=== PATIENT | female | born 1965 | race American Indian/Alaskan Native ===

== ENCOUNTER 2018-08-06 05:55 | Emergency (ER) | payer BC ==
[2018-08-06] MEDS ORDERED: ZOFRAN ODT ONE (06:02)
[2018-08-06] MEDS ORDERED: ZOFRAN ODT PO ONE (06:06)
[2018-08-06 07:07] LABS: Bilirubin,Urine NEG (Negative); Blood,Urine LG (Negative); Color,Urine Yellow (Yellow); Mucus,Urine FEW /HPF; Urobilinogen,Urine < 2.0 mg/dL (<2.0)
[2018-08-06 07:27] LABS: Basophils # (Auto) 0.1 K/mm3 (0.0-0.1); Basophils % (Auto) 1.1 % (0.0-1.8); Eosinophils % (Auto) 0.2 % (0.0-4.3); Hematocrit 39.1 % (30.3-42.9); Hemoglobin 12.7 gm/dl (10.1-14.3); Lymphocytes # (Auto) 2.8 K/mm3 (1.2-5.4); Lymphocytes % (Auto) 26.4 % (13.4-35.0); Mean Corpuscular HGB Conc 33 % (30-34); Mean Corpuscular Volume 79 fl (79-97); Monocytes # (Auto) 0.4 K/mm3 (0.0-0.8); Monocytes % (Auto) 3.8 % (0.0-7.3); Platelet Count 410 K/mm3 (140-440); Red Blood Count 4.94 M/mm3 (3.65-5.03)
[2018-08-06 07:52] LABS: Alanine Aminotransferase 29 units/L (7-56); Albumin 4.2 g/dL (3.9-5); BUN/Creatinine Ratio 18; Blood Urea Nitrogen 16 mg/dL (7-17); Calcium 9.3 mg/dL (8.4-10.2); Hemolysis Index 3
[2018-08-06] MEDS ORDERED: ZOFRAN IV ONE (08:24)
[2018-08-06] MEDS ORDERED: TORADOL IV ONE (08:24)
[2018-08-06] MEDS ORDERED: PEPCID IV ONE (08:24)
[2018-08-06] MEDS ORDERED: MORPHINE IV ONE (08:24)
[2018-08-06] MEDS ORDERED: NACL 0.9% 1000 ML 1,000 ML IV ONE (08:24)
--- NOTE | 2018-08-06 09:46 | Cat Scan Report ---
CT ABDOMEN PELVIS WITHOUT CONTRAST: HISTORY: Right flank pain with hematuria. COMPARISON: none. TECHNIQUE: Helical CT in 1.25mm intervals without IV contrast. Sagittal and coronal reconstructions. FINDINGS: Lung bases: Within normal limits. Liver: There is mild diffuse fatty infiltration throughout the liver. Borderline hepatomegaly. No obvious focal mass or surface nodularity. Biliary system: Normal. Pancreas: Normal. Spleen: Normal. Kidneys/ureters/bladder: There is mild right hydronephrosis. A 5.1 x 4.6 x 7.8 mm stone is identified in the distal right ureter on image 148, series 3. There are 3 stones in the right kidney measuring 4.1, 4.3 and 9.0 mm. No left nephrolithiasis is identified. No obvious renal cystic disease or renal mass. The bladder is partially empty but unremarkable. Adrenal glands: Normal. Aorta: Within normal limits. Intestines: No oral contrast was administered. No evidence for outlet obstruction or focal inflammation. Appendix: Normal. Pelvic viscera: The uterus appears mildly enlarged. Mild uterine fibroid disease is suspected. The adnexa are unremarkable. Ascites: None. Adenopathy: None. Musculoskeletal: Mild thoracolumbar spondylosis. Small uncomplicated umbilical hernia containing fat. IMPRESSION: Distal right ureteral stone with mild right hydronephrosis. Right nephrolithiasis. See above. Mild diffuse fatty infiltration throughout the liver. Mild uterine fibroid disease.
--- NOTE | 2018-08-06 10:20 | Emergency Department Report ---
ED Abdominal Pain HPI - General Chief Complaint: Abdominal Pain Stated Complaint: SIDE PAIN Time Seen by Provider: 08/06/18 08:20 Source: patient Mode of arrival: Ambulatory Limitations: No Limitations - History of Present Illness Initial Comments: Patient is a 52-year-old female who has had pain in the right flank for the last 2 days. Patient states that it started gradual and was intermittent but has worsened over the last 24 hours. Patient states that the pain is a 10 out of 10 in severity and is sharp stabbing pain. Patient states that palpation does not make it worse. Patient states is a deeper sensation. There is associated nausea vomiting and 1 episode of loose stools. Patient denies any fever cough cold congestion or dysuria at this time. Severity scale (0 -10): 6 - Related Data Previous Rx's Medication Instructions Recorded Last Taken Type HYDROcodone/ACETAMINOPHEN 1 each PO Q6HR PRN #12 tablet 08/06/18 Unknown Rx [Hydrocodone-Acetamin 5-325 mg] Ibuprofen [Ibu] 800 mg PO Q8H PRN #20 tablet 08/06/18 Unknown Rx Nitrofurantoin Monohyd/M-Cryst 100 mg PO BID #14 capsule 08/06/18 Unknown Rx [Macrobid 100 mg Capsule] Ondansetron [Zofran Odt] 4 mg PO Q8HR #10 tab.rapdis 08/06/18 Unknown Rx Tamsulosin [Flomax] 0.4 mg PO QDAY #7 cap 08/06/18 Unknown Rx Allergies Allergy/AdvReac Type Severity Reaction Status Date / Time No Known Allergies Allergy Verified 08/06/18 06:01 ED Review of Systems ROS: Stated complaint: SIDE PAIN Other details as noted in HPI Comment: All other systems reviewed and negative ED Past Medical Hx - Past Medical History Previous Medical History?: Yes Hx Hypertension: Yes - Surgical History Past Surgical History?: Yes Additional Surgical History: ovarian cyst - Social History Smoking Status: Never Smoker - Medications Home Medications: Home Medications Medication Instructions Recorded Confirmed Last Taken Type HYDROcodone/ACETAMINOPHEN 1 each PO Q6HR PRN #12 tablet 08/06/18 Unknown Rx [Hydrocodone-Acetamin 5-325 mg] Ibuprofen [Ibu] 800 mg PO Q8H PRN #20 tablet 08/06/18 Unknown Rx Nitrofurantoin Monohyd/M-Cryst 100 mg PO BID #14 capsule 08/06/18 Unknown Rx [Macrobid 100 mg Capsule] Ondansetron [Zofran Odt] 4 mg PO Q8HR #10 tab.rapdis 08/06/18 Unknown Rx Tamsulosin [Flomax] 0.4 mg PO QDAY #7 cap 08/06/18 Unknown Rx ED Physical Exam - General Limitations: No Limitations General appearance: alert, in distress - Head Head exam: Present: atraumatic, normocephalic - Eye Eye exam: Present: normal appearance, PERRL, EOMI - ENT ENT exam: Present: mucous membranes moist - Neck Neck exam: Present: normal inspection - Respiratory Respiratory exam: Present: normal lung sounds bilaterally. Absent: respiratory distress, wheezes, rales, rhonchi, stridor - Cardiovascular Cardiovascular Exam: Present: regular rate, normal rhythm, normal heart sounds. Absent: systolic murmur, diastolic murmur, rubs, gallop - GI/Abdominal GI/Abdominal exam: Present: soft, tenderness, normal bowel sounds. Absent: distended, guarding, rebound - Extremities Exam Extremities exam: Present: normal inspection - Back Exam Back exam: Present: normal inspection - Neurological Exam Neurological exam: Present: alert, oriented X3 - Psychiatric Psychiatric exam: Present: normal affect, normal mood - Skin Skin exam: Present: warm, dry, intact, normal color. Absent: rash ED Course Vital Signs 08/06/18 08/06/18 05:58 10:24 Temperature 98.7 F Pulse Rate 121 H 100 H Respiratory 18 16 Rate Blood Pressure 191/96 Blood Pressure 161/95 [Left] O2 Sat by Pulse 99 95 Oximetry ED Medical Decision Making - Lab Data Result diagrams: 08/06/18 07:01 08/06/18 07:01 Lab Results 08/06/18 08/06/18 08/06/18 Range/Units 06:41 07:01 07:01 WBC 10.4 (4.5-11.0) K/mm3 RBC 4.94 (3.65-5.03) M/mm3 Hgb 12.7 (10.1-14.3) gm/dl Hct 39.1 (30.3-42.9) % MCV 79 (79-97) fl MCH 26 L (28-32) pg MCHC 33 (30-34) % RDW 17.0 H (13.2-15.2) % Plt Count 410 (140-440) K/mm3 Lymph % (Auto) 26.4 (13.4-35.0) % [place] % (Auto) 3.8 (0.0-7.3) % Eos % (Auto) 0.2 (0.0-4.3) % Baso % (Auto) 1.1 (0.0-1.8) % Lymph # 2.8 (1.2-5.4) K/mm3 Deuel # 0.4 (0.0-0.8) K/mm3 Eos # 0.0 (0.0-0.4) K/mm3 Baso # 0.1 (0.0-0.1) K/mm3 Seg Neutrophils % 68.5 (40.0-70.0) % Seg Neutrophils # 7.1 (1.8-7.7) K/mm3 Sodium 138 (137-145) mmol/L Potassium 3.9 (3.6-5.0) mmol/L Chloride 103.3 (98-107) mmol/L Carbon Dioxide 21 L (22-30) mmol/L Anion Gap 18 mmol/L BUN 16 (7-17) mg/dL Creatinine 0.9 (0.7-1.2) mg/dL Estimated GFR > 60 ml/min BUN/Creatinine Ratio 18 % Glucose 153 H (65-100) mg/dL Calcium 9.3 (8.4-10.2) mg/dL Total Bilirubin 0.20 (0.1-1.2) mg/dL AST 33 (5-40) units/L ALT 29 (7-56) units/L Alkaline Phosphatase 69 (35-129) units/L Total Protein 9.4 H (6.3-8.2) g/dL Albumin 4.2 (3.9-5) g/dL Albumin/Globulin Ratio 0.8 % Lipase 45 (13-60) units/L Urine Color Yellow (Yellow) Urine Turbidity Slightly-cloudy (Clear) Urine pH 5.0 (5.0-7.0) Ur Specific [place] 1.027 (1.003-1.030) Urine Protein 30 mg/dl (Negative) mg/dL Urine Glucose (UA) Neg (Negative) mg/dL Urine Ketones Neg (Negative) mg/dL Urine Blood Lg (Negative) Urine Nitrite Neg (Negative) Urine Bilirubin Neg (Negative) Urine Urobilinogen < 2.0 (<2.0) mg/dL Ur Leukocyte Esterase Neg (Negative) Urine WBC (Auto) 2.0 (0.0-6.0) /HPF Urine RBC (Auto) 52.0 (0.0-6.0) /HPF U Epithel Cells (Auto) 4.0 (0-13.0) /HPF Urine Mucus Few /HPF - Radiology Data [facility] [address] [place] [address] Cat Scan Report Signed Patient: AILEEN PADRON MR#: [id number] : 1965 Acct:[id number] Age/Sex: 52 / F ADM Date: 08/06/18 Loc: ED Attending Dr: Ordering Physician: LUCIAN SWARTZ MD Date of Service: 08/06/18 Procedure(s): CT abdomen pelvis wo con Accession Number(s): [id number] cc: LUCIAN SWARTZ MD CT ABDOMEN PELVIS WITHOUT CONTRAST: HISTORY: Right flank pain with hematuria. COMPARISON: none. TECHNIQUE: Helical CT in 1.25mm intervals without IV contrast. Sagittal and coronal reconstructions. FINDINGS: Lung bases: Within normal limits. Liver: There is mild diffuse fatty infiltration throughout the liver. Borderline hepatomegaly. No obvious focal mass or surface nodularity. Biliary system: Normal. Pancreas: Normal. Spleen: Normal. Kidneys/ureters/bladder: There is mild right hydronephrosis. A 5.1 x 4.6 x 7.8 mm stone is identified in the distal right ureter on image 148, series 3. There are 3 stones in the right kidney measuring 4.1, 4.3 and 9.0 mm. No left nephrolithiasis is identified. No obvious renal cystic disease or renal mass. The bladder is partially empty but unremarkable. Adrenal glands: Normal. Aorta: Within normal limits. Intestines: No oral contrast was administered. No evidence for outlet obstruction or focal inflammation. Appendix: Normal. Pelvic viscera: The uterus appears mildly enlarged. Mild uterine fibroid disease is suspected. The adnexa are unremarkable. Ascites: None. Adenopathy: None. Musculoskeletal: Mild thoracolumbar spondylosis. Small uncomplicated umbilical hernia containing fat. IMPRESSION: Distal right ureteral stone with mild right hydronephrosis. Right nephrolithiasis. See above. Mild diffuse fatty infiltration throughout the liver. Mild uterine fibroid disease. Transcribed By: TTR Dictated By: ALKA SRINIVASAN JR, MD Electronically Authenticated By: ALKA SRINIVASAN JR, MD Signed Date/Time: 08/06/18940 DD/ 5 TD/TT: 08/06/18940 - Medical Decision Making Patient was given pain meds and her pain is significantly decreased. Patient states at time of discharge her pain is a 2 out of 10. We did have a long conversation about her kidney stones. Patient will be discharged home. Because the size of the patient's stone patient will be referred to urology. Patient stone is in the distal ureter and I suspect that she likely will be able to pass it however again she was given urology follow-up. Vital Signs 08/06/18 08/06/18 05:58 10:24 Temperature 98.7 F Pulse Rate 121 H 100 H Respiratory 18 16 Rate Blood Pressure 191/96 Blood Pressure 161/95 [Left] O2 Sat by Pulse 99 95 Oximetry Critical care attestation.: If time is entered above; I have spent that time in minutes in the direct care of this critically ill patient, excluding procedure time. ED Disposition Clinical Impression: Hydronephrosis Qualifiers: Hydronephrosis type: with ureteral calculous obstruction Qualified Code(s): N13.2 - Hydronephrosis with renal and ureteral calculous obstruction Disposition: - TO HOME OR SELFCARE Is pt being admited?: No Does the pt Need Aspirin: No Condition: Stable Instructions: Kidney Stones (ED) Prescriptions: Tamsulosin [Flomax] 0.4 mg PO QDAY #7 cap HYDROcodone/ACETAMINOPHEN [Hydrocodone-Acetamin 5-325 mg] 1 each PO Q6HR PRN #12 tablet PRN Reason: Pain , Severe (7-10) Ibuprofen [Ibu] 800 mg PO Q8H PRN #20 tablet PRN Reason: Pain , Severe (7-10) Nitrofurantoin Monohyd/M-Cryst [Macrobid 100 mg Capsule] 100 mg PO BID #14 capsule Ondansetron [Zofran Odt] 4 mg PO Q8HR #10 tab.rapdis Referrals: YEIMI LUCERO MD [Staff Physician] - 3-5 Days Time of Disposition: 10:19
[2018-08-06 10:25] VITALS: BP 161/95
== END 2018-08-06 11:01 | disposition home or self-care (01) ==
LOC: ED 05:55
DX: N13.1 Hydronephrosis with ureteral stricture, not elsewhere classified (principal); I10 Essential (primary) hypertension
CPT/HCPCS: 36415; 74176; 80053; 81001; 83690; 85025; 96361; 96374; 96375; 99284; J1885; J2270; J2405; J7030; Q0162